=== PATIENT | male | born 1935 | race Two or more races ===

== ENCOUNTER 2024-11-04 02:11 | Inpatient (IN) | payer MEDICARE, BC ==
[~2024-11-04] VITALS: Ht 170.2 cm; Wt 74.8 kg
[~2024-11-04 02:11] MED LIST: AMLO-102 PO; ASPI81TA31 PO; CANA300T PO; FOLI0.8T2 PO; FOLI1TAB94 PO
[2024-11-04] MEDS ORDERED: ONDANSETRON 4 MG/2 ML VIAL ONE (02:39)
[2024-11-04] MEDS ORDERED: HYDROMORPHONE 1 MG/1 ML DISP.SYRIN ONE ×2 (02:40→06:29)
[2024-11-04] MEDS: ONDANSETRON 4 MG/2 ML VIAL IV ONE (02:44)
[2024-11-04] MEDS: IV NORMAL SALINE 1000 ML BAG IV ONE (02:44)
[2024-11-04] MEDS: HYDROMORPHONE 1 MG/1 ML DISP.SYRIN IV ONE (02:44)
[2024-11-04 03:04] LABS: BASOPHILS % (AUTO) 0.6 % (0.0-2.0); EOSINOPHILS # (AUTO) 0.1 K/uL (0.0-0.7); EOSINOPHILS % (AUTO) 1.6 % (0.0-7.0); HEMOGLOBIN 11.3 g/dL (12.5-16.3); LYMPHOCYTES # (AUTO) 0.9 K/uL (0.8-4.8); LYMPHOCYTES % (AUTO) 11.6 % (20.5-51.5); MEAN CORPUSCULAR HEMOGLOBIN 32.6 uug (23.8-33.4); MEAN CORPUSCULAR HGB CONC 34 g/dL (32.5-36.3); MEAN CORPUSCULAR VOLUME 95.4 fL (73.0-96.2); MONOCYTES # (AUTO) 0.5 K/uL (0.1-1.30); MONOCYTES % (AUTO) 5.9 % (0.0-11.0); NEUTROPHILS # (AUTO) 6.4 K/uL (1.8-8.9); NEUTROPHILS % (AUTO) 80.3 % (38.5-71.5); PLATELET COUNT (AUTO) 155 K/uL (152-348); RED BLOOD CELL COUNT(AUTO) 3.46 MIL/uL (4.06-5.63); RED CELL DISTRIBUTION WIDTH 13.7 % (12.1-16.2)
[2024-11-04 03:05] LABS: DIFFERENTIAL COMMENT 1
[2024-11-04 03:10] LABS: CALCIUM 9.3 mg/dL (8.5-10.1); CARBON DIOXIDE 34 mmol/L (21-32); CHLORIDE 100 mmol/L (98-107); GLUCOSE 129 mg/dL (74-106); SODIUM SERUM 141 mmol/L (136-145); UREA NITROGEN, BLOOD 32 mg/dL (7-18)
[2024-11-04 03:15] LABS: ALANINE AMINOTRANSFERASE 12 U/L (16-63); ALBUMIN 3.7 g/dL (3.4-5.0); ALKALINE PHOSPHATASE 70 U/L (50-136); ASPARTATE AMINOTRANSFERASE 16 U/L (15-37); BILIRUBIN,DIRECT 0.2 mg/dL (0.0-0.2); BILIRUBIN,TOTAL 0.8 mg/dL (0.2-1.0)
[2024-11-04] MEDS ORDERED: REMEDY ESSENTIAL ZINC PASTE 113 GM TP PRN (03:15)
[2024-11-04] MEDS ORDERED: ACETAMINOPHEN 325 MG TABLET PO PRN (03:15)
[2024-11-04] MEDS ORDERED: ONDANSETRON 4 MG/2 ML VIAL IV PRN (03:15)
[2024-11-04] MEDS ORDERED: MAGNESIUM HYDROXIDE 30 ML LIQUID UDC PO PRN (03:15)
[2024-11-04 03:22] LABS: MAGNESIUM 2.4 mg/dL (1.8-2.4); PHOSPHOROUS 3.5 mg/dL (2.5-4.9)
[2024-11-04] MEDS: HYDROMORPHONE 1 MG/1 ML DISP.SYRIN IV STA (06:30)
[2024-11-04 06:45] VITALS: BP 145/57; TEMP 98.5; O2SAT 99
[2024-11-04] MEDS ORDERED: DEXTROSE 50% 50 ML DISP.SYRIN IV PRN (08:45)
[2024-11-04] MEDS: FOLIC ACID 1 MG TABLET PO SCH (09:41)
[2024-11-04] MEDS: AMLODIPINE 5 MG TABLET PO SCH (09:41)
[2024-11-04] MEDS: FOLIC ACID/VITAMIN B COMP W-C TABLET PO SCH (09:41)
[2024-11-04] MEDS: BENAZEPRIL HCL 20 MG TABLET PO SCH (09:41)
[2024-11-04] MEDS: PANTOPRAZOLE SODIUM 40 MG VIAL IV SCH (09:41)
[2024-11-04] MEDS: HYDROCODONE/APAP 5-325MG TABLET PO PRN (10:43)
[2024-11-04 10:44] VITALS: BP 137/55; TEMP 98.1; O2SAT 100
[2024-11-04] MEDS: BLOOD SUGAR DIAGNOSTIC 1 EACH STRIP VI SCH (12:07)
[2024-11-04] MEDS: INSULIN REGULAR, HUMAN 1000 UNIT/10 ML VIAL SQ PRN (12:58)
== END 2024-11-04 14:00 | disposition left against medical advice (07) | DRG 535 ==
LOC: ER 02:27 → MEDSURG3 06:12
PROVIDERS: ADMIT Student in an Organized Health Care Education/Training Program; ATTEND Internal Medicine
DX: S72.142A Displaced intertrochanteric fracture of left femur, initial encounter for closed fracture (principal); N18.6 End stage renal disease; I12.0 Hypertensive chronic kidney disease with stage 5 chronic kidney disease or end stage renal disease; W01.0XXA Fall on same level from slipping, tripping and stumbling without subsequent striking against object, initial encounter; Y92.009 Unspecified place in unspecified non-institutional (private) residence as the place of occurrence of the external cause; E11.22 Type 2 diabetes mellitus with diabetic chronic kidney disease; Z99.2 Dependence on renal dialysis; Z53.29 Procedure and treatment not carried out because of patient's decision for other reasons; I25.10 Atherosclerotic heart disease of native coronary artery without angina pectoris; D63.1 Anemia in chronic kidney disease; Q78.9 Osteochondrodysplasia, unspecified; Z79.84 Long term (current) use of oral hypoglycemic drugs; R60.0 Localized edema; Z79.82 Long term (current) use of aspirin; Z95.5 Presence of coronary angioplasty implant and graft; Z85.46 Personal history of malignant neoplasm of prostate
CPT/HCPCS: 36415; 71045; 72170; 73502; 83735; 84100; 85025; 85730; A4606; G0378; J1171; J1815; J2405; J2470; J7040

== ENCOUNTER 2024-11-21 15:33 | Inpatient (IN) | payer MEDICARE, BC ==
[~2024-11-21] VITALS: Ht 167.6 cm; Wt 63.1 kg
[2024-11-21] MEDS ORDERED: CEFTRIAXONE /D5W 50ML IVPB **ER PYXIS IV ONE (16:02)
[2024-11-21] MEDS ORDERED: VANCOMYCIN IV 200 ML ONE (16:02)
[2024-11-21] MEDS: CEFTRIAXONE 1 G in IV DEXTROSE 5% 50 ML IV ONE (16:07)
[2024-11-21] MEDS: VANCOMYCIN IV 1,000 MG in IV DEXTROSE 5% 250 ML IV ONE (16:08)
[2024-11-21 16:18] LABS: BASOPHILS % (AUTO) 0.5 % (0.0-2.0); EOSINOPHILS # (AUTO) 0.1 K/uL (0.0-0.7); EOSINOPHILS % (AUTO) 0.7 % (0.0-7.0); HEMATOCRIT 26.2 % (36.7-47.1); HEMOGLOBIN 8.8 g/dL (12.5-16.3); LYMPHOCYTES # (AUTO) 1.2 K/uL (0.8-4.8); LYMPHOCYTES % (AUTO) 15.8 % (20.5-51.5); MEAN CORPUSCULAR HEMOGLOBIN 32.3 uug (23.8-33.4); MEAN CORPUSCULAR HGB CONC 34 g/dL (32.5-36.3); MEAN CORPUSCULAR VOLUME 95.7 fL (73.0-96.2); MONOCYTES # (AUTO) 0.8 K/uL (0.1-1.30); MONOCYTES % (AUTO) 10.2 % (0.0-11.0); NEUTROPHILS # (AUTO) 5.5 K/uL (1.8-8.9); NEUTROPHILS % (AUTO) 72.8 % (38.5-71.5); PLATELET COUNT (AUTO) 256 K/uL (152-348); RED BLOOD CELL COUNT(AUTO) 2.74 MIL/uL (4.06-5.63); RED CELL DISTRIBUTION WIDTH 14.6 % (12.1-16.2); WHITE BLOOD COUNT (AUTO) 7.5 K/uL (3.6-10.2)
[2024-11-21 16:19] LABS: CALCIUM 9.1 mg/dL (8.5-10.1); CARBON DIOXIDE 32 mmol/L (21-32); CHLORIDE 98 mmol/L (98-107); CREATININE 6.5 mg/dL (0.6-1.3); DIFFERENTIAL COMMENT 1; GLUCOSE 129 mg/dL (74-106); POTASSIUM 4.2 mmol/L (3.5-5.1); SODIUM SERUM 136 mmol/L (136-145); UREA NITROGEN, BLOOD 50 mg/dL (7-18)
[2024-11-21 16:31] LABS: ALANINE AMINOTRANSFERASE 6 U/L (16-63); ALBUMIN 2.9 g/dL (3.4-5.0); ALKALINE PHOSPHATASE 102 U/L (50-136); ASPARTATE AMINOTRANSFERASE 13 U/L (15-37); BILIRUBIN,DIRECT 0.2 mg/dL (0.0-0.2); BILIRUBIN,TOTAL 0.7 mg/dL (0.2-1.0); NT-PRO BNP 2129 pg/mL (0-125); TOTAL PROTEIN, SERUM 6.6 g/dL (6.4-8.2)
[2024-11-21] MEDS ORDERED: ROSU10TA29 PO (16:51)
[2024-11-21] MEDS ORDERED: AMLO10TA59 PO (16:51)
[2024-11-21] MEDS ORDERED: SITA50TA PO (16:51)
[2024-11-21] MEDS ORDERED: APIX2.5T PO (16:51)
[2024-11-21 17:04] LABS: *BILIRUBIN,URIN NEGATIVE (NEGATIVE); *COLOR,URINE YELLOW (YELLOW); *KETONES,URINE NEGATIVE (NEGATIVE); *PROTEIN,URINE 3+ (NEGATIVE); *UROBILINOGEN,URINE 0.2 E.U./dl (NORMAL); LEUKOCYTE ESTERASE ,URINE 2+ (NEGATIVE); NITRITE, URINE NEGATIVE (NEGATIVE); PH,URINE 6.5 (5.0-8.0); UGLUCOSE NEGATIVE (NEGATIVE)
[2024-11-21 17:10] LABS: *BLOOD, URINE TRACE (NEGATIVE); *CLARITY,URINE HAZY (CLEAR)
[2024-11-21 17:31] LABS: RBC,URINE 0-3 /HPF (0-3); WBC,URINE 50-80 /HPF (0-3)
[2024-11-21 17:32] LABS: BACTERIA,URINE MANY /HPF (NONE SEEN); SQUAMOUS EPITHELIAL CELL,UR FEW /HPF (NONE SEEN)
[2024-11-21] MEDS ORDERED: REMEDY ESSENTIAL ZINC PASTE 113 GM TP PRN (19:00)
[2024-11-21] MEDS ORDERED: ONDANSETRON 4 MG/2 ML VIAL IV PRN (19:00)
[2024-11-21 22:37] VITALS: BP 118/43; TEMP 97.9; O2SAT 98
[2024-11-21] MEDS: IV 1/2NS 1000 ML 1,000 ML IV PRN (22:52)
[2024-11-22] MEDS: ACETAMINOPHEN 325 MG TABLET PO PRN (01:08)
[2024-11-22] MEDS: PANTOPRAZOLE SODIUM 40 MG TABLET.DR PO SCH (06:35)
[2024-11-22 06:44] VITALS: BP 121/49; TEMP 98.9; O2SAT 99
[2024-11-22 06:56] LABS: BASOPHILS % (AUTO) 0.5 % (0.0-2.0); EOSINOPHILS # (AUTO) 0.1 K/uL (0.0-0.7); EOSINOPHILS % (AUTO) 1.5 % (0.0-7.0); HEMATOCRIT 25.8 % (36.7-47.1); HEMOGLOBIN 8.8 g/dL (12.5-16.3); LYMPHOCYTES # (AUTO) 1.1 K/uL (0.8-4.8); LYMPHOCYTES % (AUTO) 17.5 % (20.5-51.5); MEAN CORPUSCULAR HEMOGLOBIN 33.2 uug (23.8-33.4); MEAN CORPUSCULAR HGB CONC 34 g/dL (32.5-36.3); MEAN CORPUSCULAR VOLUME 96.9 fL (73.0-96.2); MONOCYTES # (AUTO) 0.7 K/uL (0.1-1.30); MONOCYTES % (AUTO) 10.8 % (0.0-11.0); NEUTROPHILS # (AUTO) 4.3 K/uL (1.8-8.9); NEUTROPHILS % (AUTO) 69.7 % (38.5-71.5); PLATELET COUNT (AUTO) 242 K/uL (152-348); RED BLOOD CELL COUNT(AUTO) 2.66 MIL/uL (4.06-5.63); RED CELL DISTRIBUTION WIDTH 14.6 % (12.1-16.2); WHITE BLOOD COUNT (AUTO) 6.2 K/uL (3.6-10.2)
[2024-11-22 07:21] LABS: CALCIUM 9.3 mg/dL (8.5-10.1); CARBON DIOXIDE 32 mmol/L (21-32); CHLORIDE 98 mmol/L (98-107); CREATININE 6.9 mg/dL (0.6-1.3); DIFFERENTIAL COMMENT 1; GLUCOSE 93 mg/dL (74-106); MAGNESIUM 2.6 mg/dL (1.8-2.4); PHOSPHOROUS 4.9 mg/dL (2.5-4.9); POTASSIUM 3.7 mmol/L (3.5-5.1); SODIUM SERUM 139 mmol/L (136-145); UREA NITROGEN, BLOOD 52 mg/dL (7-18)
[2024-11-22 08:30] VITALS: BP 112/52; TEMP 98.1; O2SAT 99
[2024-11-22] MEDS: CEFTRIAXONE 1 G in IV DEXTROSE 5% 50 ML IV SCH (10:04)
[2024-11-22 13:00] VITALS: BP 128/49; TEMP 97.7; O2SAT 100
[2024-11-22 19:40] VITALS: BP 142/39; TEMP 98.5; O2SAT 99
[2024-11-22] MEDS: diphenhydrAMINE 25 MG CAP PO ONE (21:56)
[2024-11-23] MEDS: HYDROCODONE/APAP 10-325 MG TABLET PO PRN (01:58)
[2024-11-23 06:49] VITALS: BP 142/32; TEMP 98.2; O2SAT 100
[2024-11-23] MEDS ORDERED: SODI650T PO (10:51)
[2024-11-23] MEDS ORDERED: CHOL10005 PO (10:51)
[2024-11-23] MEDS ORDERED: METO-356 PO (10:52)
[2024-11-23] MEDS ORDERED: ACET325T53 PO (10:53)
[2024-11-23] MEDS ORDERED: SENN8.6T19 PO (10:53)
[2024-11-23 11:49] VITALS: BP 125/43; TEMP 98.7; O2SAT 99
[2024-11-23 16:01] VITALS: BP 119/35; TEMP 98.3; O2SAT 100
[2024-11-23] MEDS: NEPRO (VANILLA) 237 ML CAN PO SCH (16:33)
[2024-11-23 19:00] VITALS: BP 107/43; TEMP 98.4; O2SAT 100
[2024-11-23] MEDS: ATORVASTATIN 20 MG TABLET PO SCH (20:26)
[2024-11-23] MEDS: SENNOSIDES 1 TABLET PO PRN (20:26)
[2024-11-23] MEDS: APIXABAN 2.5 MG TABLET PO SCH (20:28)
[2024-11-24 04:07] LABS: HEPATITIS B SURFACE AB, QUAL Reactive (.); HEPATITIS B SURFACE AG Negative (Negative)
[2024-11-24 06:36] VITALS: BP 146/32; TEMP 98.9; O2SAT 99
[2024-11-24 07:14] LABS: BASOPHILS % (AUTO) 0.6 % (0.0-2.0); EOSINOPHILS # (AUTO) 0.1 K/uL (0.0-0.7); EOSINOPHILS % (AUTO) 1.7 % (0.0-7.0); HEMATOCRIT 24.7 % (36.7-47.1); HEMOGLOBIN 8.4 g/dL (12.5-16.3); LYMPHOCYTES % (AUTO) 17.2 % (20.5-51.5); MEAN CORPUSCULAR HEMOGLOBIN 32.8 uug (23.8-33.4); MEAN CORPUSCULAR HGB CONC 34 g/dL (32.5-36.3); MEAN CORPUSCULAR VOLUME 96.7 fL (73.0-96.2); MONOCYTES # (AUTO) 0.6 K/uL (0.1-1.30); MONOCYTES % (AUTO) 10.4 % (0.0-11.0); NEUTROPHILS # (AUTO) 3.9 K/uL (1.8-8.9); NEUTROPHILS % (AUTO) 70.1 % (38.5-71.5); PLATELET COUNT (AUTO) 200 K/uL (152-348); RED BLOOD CELL COUNT(AUTO) 2.55 MIL/uL (4.06-5.63); RED CELL DISTRIBUTION WIDTH 14.5 % (12.1-16.2); WHITE BLOOD COUNT (AUTO) 5.5 K/uL (3.6-10.2)
[2024-11-24 07:41] LABS: DIFFERENTIAL COMMENT 1
[2024-11-24 07:56] LABS: IRON, SERUM 23 ug/dL (50-175)
[2024-11-24 08:19] LABS: ALANINE AMINOTRANSFERASE 12 U/L (16-63); ALBUMIN 2.5 g/dL (3.4-5.0); ALKALINE PHOSPHATASE 94 U/L (50-136); ASPARTATE AMINOTRANSFERASE 16 U/L (15-37); BILIRUBIN,TOTAL 0.6 mg/dL (0.2-1.0); CALCIUM 8.6 mg/dL (8.5-10.1); CARBON DIOXIDE 30 mmol/L (21-32); CHLORIDE 102 mmol/L (98-107); CHOLESTEROL 103 mg/dL (<200); CREATININE 5.2 mg/dL (0.6-1.3); GLUCOSE 95 mg/dL (74-106); HDL CHOLESTEROL 56 mg/dL (40-60); MAGNESIUM 2.3 mg/dL (1.8-2.4); PHOSPHOROUS 4.5 mg/dL (2.5-4.9); POTASSIUM 4.6 mmol/L (3.5-5.1); SODIUM SERUM 138 mmol/L (136-145); TOTAL PROTEIN, SERUM 5.7 g/dL (6.4-8.2); TRIGLYCERIDES 41 MG/DL (30-150); UREA NITROGEN, BLOOD 41 mg/dL (7-18)
[2024-11-24] MEDS: FOLIC ACID/VITAMIN B COMP W-C TABLET PO SCH (08:19)
[2024-11-24] MEDS: METOPROLOL SUCCINATE XL 25 MG TAB.SR.24H PO SCH (08:19)
[2024-11-24 09:33] LABS: THYROID STIMULATING HORMONE 2.011 mIU/mL (0.358-3.740)
[2024-11-24] MEDS: POLYVINYL ALCOHOL OPHT DROPS 15 ML BOTTLE EACHEYE PRN (10:44)
[2024-11-24 10:46] VITALS: BP 141/40; TEMP 97.9; O2SAT 98
[2024-11-24 15:32] VITALS: BP 99/39; TEMP 97.6; O2SAT 99
[2024-11-24] MEDS ORDERED: CEFT1VIA15 IV (15:43)
[2024-11-24] MEDS ORDERED: FERR324T17 PO (15:49)
== END 2024-11-24 16:40 | disposition home health service (06) | DRG 871 ==
LOC: ER 15:33 → TELE3 20:48 → MEDSURG3 11-22 10:15
PROVIDERS: ATTEND Internal Medicine
PROC: 05HB33Z Insertion of Infusion Device into Right Basilic Vein, Percutaneous Approach (ICD-10-PCS; principal; 2024-11-22)
PROC: 5A1D70Z Performance of Urinary Filtration, Intermittent, Less than 6 Hours Per Day (ICD-10-PCS; 2024-11-22)
DX: A41.51 Sepsis due to Escherichia coli [E. coli] (principal); G92.8 Other toxic encephalopathy; N18.6 End stage renal disease; N39.0 Urinary tract infection, site not specified; D68.59 Other primary thrombophilia; I12.0 Hypertensive chronic kidney disease with stage 5 chronic kidney disease or end stage renal disease; E44.0 Moderate protein-calorie malnutrition; E11.22 Type 2 diabetes mellitus with diabetic chronic kidney disease; Z99.2 Dependence on renal dialysis; S72.142D Displaced intertrochanteric fracture of left femur, subsequent encounter for closed fracture with routine healing; X58.XXXD Exposure to other specified factors, subsequent encounter; Z74.09 Other reduced mobility; I25.10 Atherosclerotic heart disease of native coronary artery without angina pectoris; Z95.5 Presence of coronary angioplasty implant and graft; N25.0 Renal osteodystrophy; D63.1 Anemia in chronic kidney disease; Z85.46 Personal history of malignant neoplasm of prostate; Z79.01 Long term (current) use of anticoagulants; Z79.82 Long term (current) use of aspirin; Z79.84 Long term (current) use of oral hypoglycemic drugs; G31.84 Mild cognitive impairment of uncertain or unknown etiology; Z68.22 Body mass index [BMI] 22.0-22.9, adult
CPT/HCPCS: 36415; 71045; 83550; 83605; 83735; 84100; 84443; 84484; 85025; 85730; 86706; 87040; 87077; 87086; 87340; A4606; A4663; G0378; J0696; J3370; J7040; Q0163